=== PATIENT | male | born 1940 | race Caucasian/White ===

== ENCOUNTER 2022-06-15 18:04 | Inpatient (IN) | payer MEDICARE, SELFPAY ==
[2022-06-15] VITALS (13 sets, daily range): BP systolic 147–188; BP diastolic 70–88; PULSE 73–103; RESP 18–43; TEMP 36.9; O2SAT 90–98; BMI 36.6
--- NOTE | 2022-06-15 18:51 | DI.RAD.S_ITS ---
PROCEDURE: XR CHEST 2V INDICATIONS: suspected sepsis TECHNIQUE: 2 views of the chest were acquired. COMPARISON: None. FINDINGS: Surgical changes and devices: None. Lungs and pleura: Low lung volumes. Lungs are clear. No pleural effusions or pneumothorax. Mediastinum: Mediastinal contours are normal. Heart size is normal. Bones and chest wall: No suspicious bony abnormalities. Soft tissues appear unremarkable. IMPRESSION: No acute finding. Dictated by: Quinten Amaya M.D. on 06/15/2022 at 19:12 Approved by: Quinten Amaya M.D. on 06/15/2022 at 19:14
[2022-06-15 19:36] LABS: Add Manual Diff / Slide Review NO; Basophils Absolute Auto 0 /uL (0-100); Basophils Percent Auto 0.7 % (0-2); Eosinophils Absolute Auto 0 /uL (0-450); Eosinophils Percent Auto 0.6 % (2-4); Hematocrit 38.1 % (41-53); Hemoglobin 12.7 g/dL (13.5-17.5); Lymphocytes Absolute Auto 1100 /uL (1100-4500); Lymphocytes Percent Auto 17.2 % (25-40); Mean Corpuscular HGB Conc 33.3 % (30-36); Mean Corpuscular Hemoglobin 29.8 PG (26-34); Mean Corpuscular Volume 89.4 fL (80-100); Monocytes Absolute Auto 500 /uL (0-900); Neutrophils Absolute Auto 4900 /uL (1500-7000); Neutrophils Percent Auto 73.5 % (50-75); Platelet Count 329 X10^3/uL (150-400); Red Blood Cell Count 4.27 X10^6/uL (4.5-5.9); Red Cell Distribution Width 14.3 % (11.6-14.8); White Blood Cell Count 6.6 X10^3/uL (4.5-11.0)
[2022-06-15 19:42] LABS: INR 1.9 (0.9-1.3); Prothrombin Time 21.7 SECONDS (10.1-12.7)
[2022-06-15 19:45] LABS: PTT Partial Thromboplastin Tim 37 SECONDS (26-36)
[2022-06-15] MEDS: SODIUM CHLORIDE 0.9% 1,000 ML 1000 ML IV (19:45)
[2022-06-15 19:47] LABS: Alanine Aminotransferase 23 IU/L (<50); Alkaline Phosphatase 110 U/L (38-126); Aspartate Aminotransferase 32 IU/L (17-59); BUN Creatinine Ratio 14.1 (6-22); Bilirubin Total 0.9 mg/dL (0.2-1.3); Blood Urea Nitrogen 12 mg/dL (9-20); Calcium 9.7 mg/dL (8.4-10.2); Carbon Dioxide 26 mmol/L (22-32); Chloride 100 mmol/L (98-107); Estimated Glomerular Filt Rate > 60 mL/min (>60); Globulin 3.9 g/dL (1.7-4.1); Glucose 101 mg/dL (80-110); HEMOLYSIS < 15 (0-50); Lipase 86 U/L (23-300); Potassium 3.6 mmol/L (3.4-5.1); Sodium 137 mmol/L (137-145); Total Protein 7.9 g/dL (6.3-8.2)
[2022-06-15 19:48] LABS: Lactate (Lactic Acid) 2.1 mmol/L (0.7-2.1)
[2022-06-15 20:03] LABS: Procalcitonin 0.12 ng/mL (<0.5)
[2022-06-15 20:26] LABS: Influenza A - CEPHEID Flu A NEGATIVE (NEGATIVE); Influenza B - CEPHEID Flu B NEGATIVE (NEGATIVE); Respiratory Syncytial Virus Negative (Negative)
[2022-06-15 20:29] LABS: COVID-19 CEPHEID 4-PLEX PCR Negative (Negative)
[2022-06-15 21:32] LABS: Reflexed Lactate in 2 Hours Y
[2022-06-15 22:01] LABS: Lactate 2HR (Lactic Acid Rflx) 1.2 mmol/L (0.7-2.1)
--- NOTE | 2022-06-15 22:10 | ED.WOUNDLAC ---
HPI - Wound/Laceration General Chief Complaint: Wound/Laceration Stated Complaint: Poss sepsis Time Seen by Provider: 06/15/22 19:19 Source: patient Mode of arrival: Ambulatory History of Present Illness HPI narrative: 82-year-old gentleman with a history of prostate cancer, congestive heart failure, chronic atrial fibrillation anticoagulated on apixaban, hypertension who presents with left lower extremity swelling. Approximately 3 weeks ago he describes of puncture wound to the left anterior knight with a stick of some sort. Did not think much of it however it did become increasingly red tender painful and he was seen by his primary care provider on 06/09 given an IM dose of ceftriaxone and has completed a 7 day course of Keflex. The leg is still has erythema warmth edema and increasing pain after completion of the Keflex. His primary care doctor recommended that he come to the emergency department for further evaluation. States that he has been having occasional fevers and chills, no cough, palpitations, chest pain or dyspnea. Related Data Home Medications Medication Instructions Recorded Confirmed abiraterone 250 mg tablet 250 mg PO DAILY 06/15/22 06/15/22 amlodipine 5 mg tablet 5 mg PO DAILY 06/15/22 06/15/22 apixaban 5 mg tablet (Eliquis) 5 mg PO BID 06/15/22 06/15/22 cholecalciferol (vitamin D3) 1,000 mg PO DAILY 06/15/22 06/15/22 lisinopril 20 mg tablet 20 mg PO Q12H 06/15/22 06/15/22 metoprolol succinate 25 mg 25 mg PO DAILY 06/15/22 06/15/22 tablet,extended release 24 hr omeprazole 20 mg capsule,delayed 20 mg PO DAILY 06/15/22 06/15/22 release prednisone 5 mg tablet 5 mg PO DAILY 06/15/22 06/15/22 torsemide 10 mg tablet 10 mg PO DAILY 06/15/22 06/15/22 Allergies Allergy/AdvReac Type Severity Reaction Status Date / Time No Known Drug Allergies Allergy Verified 06/15/22 18:22 Review of Systems Review of Systems Narrative: Remainder of complete review of systems is otherwise unremarkable except for that included in the HPI. Patient History Medical History Chronic atrial fibrillation Congestive heart failure Hypertension Prostate cancer Exam Initial Vital Signs Initial Vital Signs: Vital Signs Temperature 98.5 F 06/15/22 18:23 Pulse Rate 80 06/15/22 18:23 Respiratory Rate 18 06/15/22 18:23 Blood Pressure 162/70 H 06/15/22 18:23 Pulse Oximetry 96 06/15/22 18:23 Oxygen Delivery Method 06/15/22 18:23 General: Chronically ill-appearing but in no acute distress. Able to give a complete and coherent history. Well-nourished well-developed HEENT: Moist mucous membranes, normal sclera with reactive pupils, Neck: No JVD, supple Respiratory: Lungs are clear to auscultation, no wheezing no rales no rhonchi. Full and symmetrical air movement Cardiac: Irregular with mild tachycardia but no murmurs no bruits Abdomen: Obese, Soft, nontender, good bowel tones, no flank pain Skin: Warm and dry, no rashes Neurologic: Grossly neurologically intact with no obvious asymmetries or abnormalities Extremities: Right lower extremity with chronic venous stasis changes and mild edema. Left lower extremity with healed/healing puncture wound lower anterior knight, 3+ edema and erythema extending toward the knee with warmth. No obvious fluctuance for I and D Psych: Cooperative, appropriate insight and affect Course Orders Ordered: ED Orders 06/15/22 18:51 XR chest 2V Stat COVID19 -Nasal RAPID/Pre-Proc Stat EKG-12 Lead Stat RT Consult Eval and Treat NOW 06/15/22 19:19 Complete Blood Count AUTO DIFF Stat Comprehensive Metabolic Panel Stat Lactate (Lactic Acid) Stat Lipase Stat Partial Thromboplastin Time Stat Procalcitonin Stat Prothrombin Time INR Stat 06/15/22 19:20 Covid-19 + FLU A/B + RSV - PCR Stat 06/15/22 19:41 Blood Culture Stat 06/15/22 22:29 CT LE LT w con Stat Acetaminophen (Acetaminophen 325 Mg Tablet) 650 mg PO Q6H PRN PRN Reason: Fever/Mild Pain (1-3) Al Hydrox/Mg Hydrox/Simethicone (Mag Hydrox/Alum/Simeth 30 Ml Udc) 30 ml PO Q6HR PRN PRN Reason: Dyspepsia Amlodipine Besylate (Amlodipine 5 Mg Tablet) 5 mg PO DAILY KOTA Apixaban (Apixaban 5 Mg Tablet) 5 mg PO BID KOTA Furosemide (Furosemide 40 Mg/4 Ml Vial) 40 mg IV Q12HR [facility] Hydromorphone HCl (Hydromorphone 1 Mg Inj) 1 mg IV Q4H PRN PRN Reason: Pain, Severe (7-10) Vancomycin HCl (Vancomycin) 1,000 mg in 200 mls @ 200 mls/hr IV NOW ONE Stop: 06/16/22 04:29 Last Admin: 06/16/22 03:33 Dose: 200 mls/hr Documented By: ANDREA Vancomycin HCl/Dextrose (Vancomycin) 2,000 mg in 400 mls @ 200 mls/hr IV Q12H [facility] Piperacillin Sod/Tazobactam (Sod 3.375 gm/ Sodium Chloride) 100 mls @ 25 mls/hr IV Q8H [facility] Metoprolol Succinate (Metoprolol Er 25 Mg Tablet) 25 mg PO DAILY [facility] Naloxone HCl (Naloxone 0.4 Mg/Ml Vial) 0.2 mg IV Q2MIN PRN PRN Reason: Opiate Reversal Ondansetron HCl (Ondansetron 4 Mg/2 Ml Inj) 4 mg IV NOW PRN PRN Reason: Nausea And Vomiting Ondansetron HCl (Ondansetron 4 Mg Odt) 4 mg SL NOW PRN PRN Reason: Nausea And Vomiting Ondansetron HCl (Ondansetron 4 Mg/2 Ml Inj) 4 mg IV Q8HR PRN PRN Reason: Nausea And Vomiting Oxycodone HCl (Oxycodone Ir 5 Mg Tablet) 5 mg PO Q3H PRN PRN Reason: Pain, Moderate (4-6) Pantoprazole Sodium (Pantoprazole Dr 20 Mg Tablet) 20 mg PO QACBREAK [facility] Prednisone (Prednisone 5 Mg Tablet) 5 mg PO DAILY [facility] Vancomycin HCl (Vancomycin Per Pharmacy) [facility] NOW ONE Stop: 06/16/22 01:51 Discontinued Medications Sodium Chloride (Normal Saline 0.9%) 1,000 mls @ 1,000 mls/hr IV BOLUS ONE Stop: 06/15/22 19:50 Last Infusion: 06/15/22 20:28 Dose: 0 mls/hr Documented By: Admin: 06/15/22 19:45 Dose: 1,000 mls/hr Documented By: ANDREA Piperacillin Sod/Tazobactam (Sod 4.5 gm/ Sodium Chloride) 100 mls @ 200 mls/hr IV NOW ONE Stop: 06/15/22 22:32 Last Infusion: 06/15/22 23:22 Dose: 0 mls/hr Documented By: Admin: 06/15/22 22:43 Dose: 200 mls/hr Documented By: ANDREA Furosemide 60 mg/ Sodium (Chloride) 56 mls @ 112 mls/hr IV NOW ONE Stop: 06/15/22 23:04 Last Infusion: 06/16/22 00:15 Dose: 0 mls/hr Documented By: Admin: 06/15/22 23:21 Dose: 112 mls/hr Documented By: ANDREA Vancomycin HCl/Dextrose (Vancomycin) 1,500 mg in 300 mls @ 200 mls/hr IV NOW ONE Stop: 06/16/22 03:14 Last Admin: 06/16/22 02:04 Dose: 200 mls/hr Documented By: ANDREA Vancomycin HCl (Vancomycin Per Pharmacy) 1 request MISC NOW ONE Stop: 06/16/22 01:32 Last Admin: 06/16/22 02:33 Dose: Not Given Documented By: ANDREA Vital Signs Vital signs: Vital Signs - 8 hr 06/15/22 20:00 06/15/22 20:00 06/15/22 20:30 Pulse Rate 79 Respiratory Rate 23 Blood Pressure 150/71 H 147/70 H Pulse Oximetry 96 06/15/22 20:30 06/15/22 21:00 06/15/22 21:00 Pulse Rate 73 79 Respiratory Rate 22 24 Blood Pressure 152/74 H Pulse Oximetry 93 97 06/15/22 21:30 06/15/22 21:30 06/15/22 22:00 Pulse Rate 82 Respiratory Rate Blood Pressure 161/83 H 163/81 H Pulse Oximetry 95 06/15/22 22:00 06/15/22 22:30 06/15/22 22:30 Pulse Rate 82 95 H Respiratory Rate Blood Pressure 188/88 H Pulse Oximetry 95 06/15/22 23:28 06/15/22 23:29 06/15/22 23:29 Pulse Rate 90 90 Respiratory Rate 43 H Blood Pressure 174/77 H Pulse Oximetry 96 95 06/15/22 23:30 06/15/22 23:30 06/16/22 00:00 Pulse Rate 91 H Respiratory Rate 27 H Blood Pressure 161/77 H 149/70 H Pulse Oximetry 95 06/16/22 00:00 06/16/22 00:30 06/16/22 00:30 Pulse Rate 80 82 Respiratory Rate 21 Blood Pressure 156/72 H Pulse Oximetry 95 06/16/22 01:00 06/16/22 01:00 06/16/22 01:30 Pulse Rate 80 Respiratory Rate Blood Pressure 158/73 H 161/81 H Pulse Oximetry 96 06/16/22 01:30 Pulse Rate 87 Respiratory Rate 25 H Blood Pressure Pulse Oximetry 97 MDM - Wound/Laceration Lab Data Result diagrams: 06/15/22 19:19 06/15/22 19:19 Labs: Lab Results 06/15/22 06/15/22 06/15/22 Range/Units 19:19 19:19 19:19 WBC 6.6 (4.5-11.0) X10^3/uL RBC 4.27 L (4.5-5.9) X10^6/uL Hgb 12.7 L (13.5-17.5) g/dL Hct 38.1 L (41-53) % MCV 89.4 (80-100) fL MCH 29.8 (26-34) PG MCHC 33.3 (30-36) % RDW 14.3 (11.6-14.8) % Plt Count 329 (150-400) X10^3/uL Neut % (Auto) 73.5 (50-75) % Lymph % (Auto) 17.2 L (25-40) % [place] % (Auto) 8.0 (3-14) % Eos % (Auto) 0.6 L (2-4) % Baso % (Auto) 0.7 (0-2) % Neut # (Auto) 4900 (2952-0719) /uL Lymph # (Auto) 1100 (3531-2714) /uL [place] # (Auto) 500 (0-900) /uL Eos # (Auto) 0 (0-450) /uL Baso # (Auto) 0 (0-100) /uL PT 21.7 H (10.1-12.7) SECONDS INR 1.9 H (0.9-1.3) APTT 37 H (26-36) SECONDS Sodium 137 (137-145) mmol/L Potassium 3.6 (3.4-5.1) mmol/L Chloride 100 (98-107) mmol/L Carbon Dioxide 26 (22-32) mmol/L BUN 12 (9-20) mg/dL Creatinine 0.85 (0.66-1.25) mg/dL Estimated GFR > 60 (>60) mL/min BUN/Creatinine Ratio 14.1 (6-22) Glucose 101 (80-110) mg/dL Lactate (0.7-2.1) mmol/L Calcium 9.7 (8.4-10.2) mg/dL Total Bilirubin 0.9 (0.2-1.3) mg/dL AST 32 (17-59) IU/L ALT 23 (<50) IU/L Alkaline Phosphatase 110 (38-126) U/L Total Protein 7.9 (6.3-8.2) g/dL Albumin 4.0 (3.5-5.0) g/dL Globulin 3.9 (1.7-4.1) g/dL Albumin/Globulin Ratio 1.0 (1.0-2.8) Lipase 86 (23-300) U/L Procalcitonin 0.12 (<0.5) ng/mL SARS-CoV-2 (PCR) (Negative) Influenza A (RT-PCR) (NEGATIVE) Influenza B (RT-PCR) (NEGATIVE) RSV (PCR) (Negative) 06/15/22 06/15/22 06/15/22 Range/Units 19:19 19:20 21:42 WBC (4.5-11.0) X10^3/uL RBC (4.5-5.9) X10^6/uL Hgb (13.5-17.5) g/dL Hct (41-53) % MCV (80-100) fL MCH (26-34) PG MCHC (30-36) % RDW (11.6-14.8) % Plt Count (150-400) X10^3/uL Neut % (Auto) (50-75) % Lymph % (Auto) (25-40) % [place] % (Auto) (3-14) % Eos % (Auto) (2-4) % Baso % (Auto) (0-2) % Neut # (Auto) (1041-8645) /uL Lymph # (Auto) (5947-6797) /uL [place] # (Auto) (0-900) /uL Eos # (Auto) (0-450) /uL Baso # (Auto) (0-100) /uL PT (10.1-12.7) SECONDS INR (0.9-1.3) APTT (26-36) SECONDS Sodium (137-145) mmol/L Potassium (3.4-5.1) mmol/L Chloride (98-107) mmol/L Carbon Dioxide (22-32) mmol/L BUN (9-20) mg/dL Creatinine (0.66-1.25) mg/dL Estimated GFR (>60) mL/min BUN/Creatinine Ratio (6-22) Glucose (80-110) mg/dL Lactate 2.1 1.2 (0.7-2.1) mmol/L Calcium (8.4-10.2) mg/dL Total Bilirubin (0.2-1.3) mg/dL AST (17-59) IU/L ALT (<50) IU/L Alkaline Phosphatase (38-126) U/L Total Protein (6.3-8.2) g/dL Albumin (3.5-5.0) g/dL Globulin (1.7-4.1) g/dL Albumin/Globulin Ratio (1.0-2.8) Lipase (23-300) U/L Procalcitonin (<0.5) ng/mL SARS-CoV-2 (PCR) Negative (Negative) Influenza A (RT-PCR) Flu a negative (NEGATIVE) Influenza B (RT-PCR) Flu b negative (NEGATIVE) RSV (PCR) Negative (Negative) Imaging Data Lower extremity CT: Radiologist's Impression: FINDINGS:? Image quality:? Excellent.? ? Bones:? No fracture or dislocation.? No discrete bony erosions or periosteal reaction. ? Soft tissues:? There is concentric skin thickening and subcutaneous edema within the left lower extremity most prominent distally in the lower leg.? No radiopaque foreign body identified no discrete loculated peripherally enhancing fluid collection to suggest an abscess.? There is fatty atrophy of the medial head of the gastrocnemius and hamstring musculature.? No knee joint effusion. ? IMPRESSION:? ? 1. No CT evidence of osteomyelitis. ? 2. No radiopaque foreign body or discrete abscess identified.? ? ? Dictated by: Ranjan Ledezma M.D. on 06/16/2022 at 0:18 ? ? MDM Narrative Medical decision making narrative: 82-year-old gentleman immunocompromised on chronic prednisone secondary to treatment for his prostate cancer with chronic lower extremity edema and puncture wound to the left anterior thigh. He is had an initial dose of ceftriaxone 7 days of Keflex and symptoms have slightly progressed. There is no evidence of sepsis or abscess or osteomyelitis however I believe that the infection is still indolent and has been suppressed by antibiotics recently but has not been effectively treated. There is no drainage at this time to culture. I will recommend hospitalization to allow for elevation of the leg, IV diuretics and have added Zosyn to more effectively treat the infection. CT scan of lower extremity does not show obvious abscess, osteomyelitis or any radiopaque foreign body. Findings reviewed with patient and he will be admitted to the hospitalist service. Findings are reveiwed with patient, questions answered. Discussed with hospitalist and admission is accepted Discharge Plan Departure Patient Disposition: Admitted as Observation Clinical Impression: Cellulitis of left lower extremity Admit Date/Time: 06/16/22 01:36 Admit Provider: Sheree Levy
--- NOTE | 2022-06-15 22:29 | DI.CT.S_ITS ---
PROCEDURE: CT LE LT W CON INDICATIONS: wound to ant knight, ? foreign body, abscess, osteo TECHNIQUE: After the administration of intravenous contrast, 3 mm axial sections acquired of the left lower extremity , with coronal and sagittal reformats. COMPARISON: None. FINDINGS: Image quality: Excellent. Bones: No fracture or dislocation. No discrete bony erosions or periosteal reaction. Soft tissues: There is concentric skin thickening and subcutaneous edema within the left lower extremity most prominent distally in the lower leg. No radiopaque foreign body identified no discrete loculated peripherally enhancing fluid collection to suggest an abscess. There is fatty atrophy of the medial head of the gastrocnemius and hamstring musculature. No knee joint effusion. IMPRESSION: 1. No CT evidence of osteomyelitis. 2. No radiopaque foreign body or discrete abscess identified. Dictated by: Ranjan Ledezma M.D. on 06/16/2022 at 0:18 Approved by: Ranjan Ledezma M.D. on 06/16/2022 at 0:22
[2022-06-15] MEDS: PIPERACILLIN/TAZO 4.5 GM in SODIUM CHLORIDE 0.9% 100 ML IV (22:43)
[2022-06-15] MEDS: FUROSEMIDE 60 MG in SODIUM CHLORIDE 0.9% 50 ML 112 MG IV (23:21)
[2022-06-16] VITALS (27 sets, daily range): BP systolic 115–168; BP diastolic 66–81; PULSE 73–137; RESP 17–43; TEMP 36.1–36.6; O2SAT 94–98; BMI 36.6
--- NOTE | 2022-06-16 02:02 | P.HP_ITS ---
History of Present Illness History of Present Illness Date Patient Seen: 06/16/22 Chief complaint: Poss sepsis Narrative: 82-year-old gentleman with a history of prostate cancer, congestive heart failure, chronic atrial fibrillation anticoagulated on apixaban, hypertension who presents with left lower extremity swelling.? Approximately 3 weeks ago he describes of puncture wound to the left anterior knight with a stick of some sort.? Did not think much of it however it did become increasingly red tender painful and he was seen by his primary care provider on 06/09 given an IM dose of ceftriaxone and has completed a 7 day course of Keflex.? The leg is still has erythema warmth edema and increasing pain after completion of the Keflex.? His primary care doctor recommended that he come to the emergency department for further evaluation.? States that he has been having occasional fevers and chills, no cough, palpitations, chest pain or dyspnea. Patient does have urinary incontinence episodes and symptoms related to urgency but denies any dysuria. Says his urinary symptoms are relatively chronic. Patient getting admitted for failed outpatient antibiotic therapy and worsening of his cellulitis and left lower extremity wound. Patient lives with his and farzad, they left hospital before I saw, he requested not to call them at 2:00 a.m. in the morning, or team members will call them to give an update. Patient History Medical History Chronic atrial fibrillation Congestive heart failure Hypertension Prostate cancer Family & Social History Safety & Behavioral: Feels Safe in Current Yes Environment Been Physically Hurt or No Threatened By a Person Tobacco & Substance use: No history of smoking, occasional alcohol no drug abuse. He worked as a executive assistant to president, and lived in in several [facility] including [facility]. Meds Home Medications and Allergies Home Medications Medication Instructions Recorded Confirmed Type abiraterone 250 mg tablet 250 mg PO DAILY 06/15/22 06/15/22 History amlodipine 5 mg tablet 5 mg PO DAILY 06/15/22 06/15/22 History apixaban 5 mg tablet (Eliquis) 5 mg PO BID 06/15/22 06/15/22 History cholecalciferol (vitamin D3) 1,000 mg PO DAILY 06/15/22 06/15/22 History lisinopril 20 mg tablet 20 mg PO Q12H 06/15/22 06/15/22 History metoprolol succinate 25 mg 25 mg PO DAILY 06/15/22 06/15/22 History tablet,extended release 24 hr omeprazole 20 mg capsule,delayed 20 mg PO DAILY 06/15/22 06/15/22 History release prednisone 5 mg tablet 5 mg PO DAILY 06/15/22 06/15/22 History torsemide 10 mg tablet 10 mg PO DAILY 06/15/22 06/15/22 History Allergies Allergy/AdvReac Type Severity Reaction Status Date / Time No Known Drug Allergies Allergy Verified 06/15/22 18:22 Review of Systems Review of Systems Narrative: All other systems reviewed, negative other than as mentioned above in HPI. Exam Vital Signs (past 8 hours): - 06/15/22 18:23 06/15/22 19:09 06/15/22 19:11 Temperature 98.5 F Pulse Rate 80 103 H Respiratory Rate 18 Blood Pressure 162/70 H 162/83 H Pulse Oximetry 96 90 L Oxygen Delivery Method Room Air 06/15/22 19:11 06/15/22 19:30 06/15/22 19:30 Temperature Pulse Rate 96 H 81 Respiratory Rate 27 H 22 Blood Pressure 150/81 H Pulse Oximetry 98 97 Oxygen Delivery Method 06/15/22 20:00 06/15/22 20:00 06/15/22 20:30 Temperature Pulse Rate 79 Respiratory Rate 23 Blood Pressure 150/71 H 147/70 H Pulse Oximetry 96 Oxygen Delivery Method 06/15/22 20:30 06/15/22 21:00 06/15/22 21:00 Temperature Pulse Rate 73 79 Respiratory Rate 22 24 Blood Pressure 152/74 H Pulse Oximetry 93 97 Oxygen Delivery Method 06/15/22 21:30 06/15/22 21:30 06/15/22 22:00 Temperature Pulse Rate 82 Respiratory Rate Blood Pressure 161/83 H 163/81 H Pulse Oximetry 95 Oxygen Delivery Method 06/15/22 22:00 06/15/22 22:30 06/15/22 22:30 Temperature Pulse Rate 82 95 H Respiratory Rate Blood Pressure 188/88 H Pulse Oximetry 95 Oxygen Delivery Method 06/15/22 23:28 06/15/22 23:29 06/15/22 23:29 Temperature Pulse Rate 90 90 Respiratory Rate 43 H Blood Pressure 174/77 H Pulse Oximetry 96 95 Oxygen Delivery Method 06/15/22 23:30 06/15/22 23:30 06/16/22 00:00 Temperature Pulse Rate 91 H Respiratory Rate 27 H Blood Pressure 161/77 H 149/70 H Pulse Oximetry 95 Oxygen Delivery Method 06/16/22 00:00 06/16/22 00:30 06/16/22 00:30 Temperature Pulse Rate 80 82 Respiratory Rate 21 Blood Pressure 156/72 H Pulse Oximetry 95 Oxygen Delivery Method 06/16/22 01:00 06/16/22 01:00 Temperature Pulse Rate 80 Respiratory Rate Blood Pressure 158/73 H Pulse Oximetry 96 Oxygen Delivery Method Oxygen Delivery Method Room Air Narrative Exam Narrative: Elderly gentleman seems to be in mild distress because of discomfort related to left leg pain, lying in the bed, able to make a reasonable conversation, follows commands. Left lower extremity has a significant swelling and redness with a wound in the anterior aspect of the knight with some purulent discharge. Significant cellulitis changes noted. Significant pedal edema 3+ noted. Right lower extremity also has pitting pedal edema but no obvious signs of cellulitis at this time. Heart rate irregular, systolic murmur noted. Constitutional, HEENT, eyes, neck, chest, respiratory, cardiovascular, GI, , skin, neuro, psych, examination done within normal limits except as mentioned above. Objective Labs Result Diagrams: 06/15/22 19:19 06/15/22 19:19 Labs: Laboratory Results - last 24 hr 06/15/22 06/15/22 06/15/22 19:19 19:19 19:19 WBC 6.6 RBC 4.27 L Hgb 12.7 L Hct 38.1 L MCV 89.4 MCH 29.8 MCHC 33.3 RDW 14.3 Plt Count 329 Neut % (Auto) 73.5 Lymph % (Auto) 17.2 L [place] % (Auto) 8.0 Eos % (Auto) 0.6 L Baso % (Auto) 0.7 Neut # (Auto) 4900 Lymph # (Auto) 1100 [place] # (Auto) 500 Eos # (Auto) 0 Baso # (Auto) 0 PT 21.7 H INR 1.9 H APTT 37 H Sodium 137 Potassium 3.6 Chloride 100 Carbon Dioxide 26 BUN 12 Creatinine 0.85 Estimated GFR > 60 BUN/Creatinine Ratio 14.1 Glucose 101 Lactate Calcium 9.7 Total Bilirubin 0.9 AST 32 ALT 23 Alkaline Phosphatase 110 Total Protein 7.9 Albumin 4.0 Globulin 3.9 Albumin/Globulin Ratio 1.0 Lipase 86 Procalcitonin 0.12 SARS-CoV-2 (PCR) Influenza A (RT-PCR) Influenza B (RT-PCR) RSV (PCR) 06/15/22 06/15/22 06/15/22 19:19 19:20 21:42 WBC RBC Hgb Hct MCV MCH MCHC RDW Plt Count Neut % (Auto) Lymph % (Auto) [place] % (Auto) Eos % (Auto) Baso % (Auto) Neut # (Auto) Lymph # (Auto) [place] # (Auto) Eos # (Auto) Baso # (Auto) PT INR APTT Sodium Potassium Chloride Carbon Dioxide BUN Creatinine Estimated GFR BUN/Creatinine Ratio Glucose Lactate 2.1 1.2 Calcium Total Bilirubin AST ALT Alkaline Phosphatase Total Protein Albumin Globulin Albumin/Globulin Ratio Lipase Procalcitonin SARS-CoV-2 (PCR) Negative Influenza A (RT-PCR) Flu a negative Influenza B (RT-PCR) Flu b negative RSV (PCR) Negative Assessment & Plan Assessment and plan (1) Cellulitis of left lower extremity: Status: Acute Assessment & Plan narrative: Severe left lower extremity cellulitis and nonhealing wound and failed outpatient antibiotics therapy -admitted for IV antibiotics -IV vancomycin and Zosyn given in the ER, continue same medication, caution with nephrotoxicity, pharmacy to help with the vancomycin dosing. Close monitoring of the kidney functions. Given significant pedal edema, worsening we will continue IV Lasix. Hold off on lisinopril. Wound care consultation. Consider surgery evaluation if patient not showing improvement in next 24 hours with IV antibiotics. Patient immunocompromised status because of the chronic steroid use and also ongoing treatment for cancer Atrial fibrillation, rate controlled and on anticoagulation -continue beta- miranda, apixaban Benign essential hypertension continue to monitor Prostate cancer with ongoing therapy continue medications, steroid therapy given the chronic use. DVT and GI prophylaxis reviewed. Patient is full code. Care plan extensively discussed with the patient, offered to talk to family members, our team will call patient family in the morning. Patient expected length of stay definitely greater than 2 midnights given failed outpatient therapy and require close monitoring. Inpatient status. Time Spent With Patient Critical Care time: I spent a total of [] minutes of critical care time on this patient's care today; this time is exclusive of procedural time.
[2022-06-16] MEDS: VANCOMYCIN 1,500 MG/300 ML PIGGYBACK 200 MG IV ×2 (02:04→16:27)
[2022-06-16] MEDS: VANCOMYCIN 1,000 MG/200 ML PIGGYBACK 200 MG IV (03:33)
[2022-06-16] MEDS: PIPERACILLIN/TAZO 3.375 GM in SODIUM CHLORIDE 0.9% 100 ML IV ×3 (04:45→19:53)
[2022-06-16 06:52] LABS: Add Manual Diff / Slide Review NO; Basophils Absolute Auto 100 /uL (0-100); Eosinophils Absolute Auto 100 /uL (0-450); Eosinophils Percent Auto 2.4 % (2-4); Hematocrit 36.8 % (41-53); Hemoglobin 12.2 g/dL (13.5-17.5); Lymphocytes Absolute Auto 1000 /uL (1100-4500); Lymphocytes Percent Auto 20.4 % (25-40); Mean Corpuscular HGB Conc 33.2 % (30-36); Mean Corpuscular Hemoglobin 29.3 PG (26-34); Mean Corpuscular Volume 88.2 fL (80-100); Monocytes Absolute Auto 600 /uL (0-900); Monocytes Percent Auto 11.6 % (3-14); Neutrophils Absolute Auto 3300 /uL (1500-7000); Neutrophils Percent Auto 64.6 % (50-75); Platelet Count 295 X10^3/uL (150-400); Red Blood Cell Count 4.17 X10^6/uL (4.5-5.9); Red Cell Distribution Width 14.5 % (11.6-14.8); White Blood Cell Count 5.1 X10^3/uL (4.5-11.0)
[2022-06-16 07:03] LABS: BUN Creatinine Ratio 11.7 (6-22); Blood Urea Nitrogen 11 mg/dL (9-20); Calcium 9.2 mg/dL (8.4-10.2); Carbon Dioxide 30 mmol/L (22-32); Chloride 102 mmol/L (98-107); Estimated Glomerular Filt Rate > 60 mL/min (>60); Glucose 94 mg/dL (80-110); HEMOLYSIS < 15 (0-50); Potassium 3.3 mmol/L (3.4-5.1); Sodium 141 mmol/L (137-145)
[2022-06-16] MEDS: FUROSEMIDE 40 MG/4 ML VIAL IV ×2 (07:28→13:05)
[2022-06-16] MEDS: PANTOPRAZOLE DR 20 MG TABLET PO (07:28)
--- NOTE | 2022-06-16 08:19 | PC.NURSE ---
ABIRATERONE 250MG ORDERED BY HOSPITALIST, PT TOOK HIS HOME DOSE. EXPLAINED TO PATIENT THAT WE WILL BE GIVING THE REST OF HIS MEDICATIONS SO I AM ABLE TO SCAN THEM INTO OUR COMPUTER AND KEEP TRACK OF THE MEDICATIONS HE IS TAKING AND AT WHAT TIME. PT VERBALIZED UNDERSTANDING.
--- NOTE | 2022-06-16 08:53 | PC.NURSE ---
Patient only wanted fruit cup from his meal tray. Refused everything else.
--- NOTE | 2022-06-16 10:25 | OT.IPNOTE ---
Spoke to hospitalist regarding OT eval orders for pt and states okay to discharge as not needed for the pt at this time.
[2022-06-16] MEDS: AMLODIPINE 5 MG TABLET PO (10:38)
[2022-06-16] MEDS: predniSONE 5 MG TABLET PO (10:38)
[2022-06-16] MEDS: METOPROLOL ER 25 MG TABLET PO (10:38)
[2022-06-16] MEDS: APIXABAN 5 MG TABLET PO ×2 (10:38→21:50)
[2022-06-16] MEDS: POTASSIUM CHLORIDE 20 MEQ TAB 40 MEQ PO ×2 (11:15→16:27)
--- NOTE | 2022-06-16 11:38 | PC.NURSE ---
Talked with pt about reasons for taking potassium this morning due to increased diuretics. Pt using call light appropriately for needs.
--- NOTE | 2022-06-16 12:28 | PT-IP ANOTE ---
Per hospitalist during rounds, d/c PT eval at this time.
[2022-06-16 16:04] LABS: RBC Urine 10-30/HPF (0-5/HPF)
[2022-06-16 16:05] LABS: Amorphous Sediment Urine 1+; Bacteria Urine None Seen; Culture Indicated Urine Cult Not Indicated; Squamous Epithelial Cell Urine 0-1 /HPF (0-5/HPF); WBC Urine 0-1/HPF (0-5/HPF)
--- NOTE | 2022-06-16 16:55 | PC.NURSE ---
Pt arrived in wheelchair from ED at 1430, able to ambulate SBA to the bed. A&Ox4, no c/o pain, just slight tenderness to LLE. Lungs cta, +cms, HR irregular. Zosyn infusing to IV in R forearm. color television console monitor applied: atrial fibrillation. Pt assisted to change into gown, oriented to room and call light.
[2022-06-17] VITALS (8 sets, daily range): BP systolic 108–128; BP diastolic 68–76; PULSE 57–74; RESP 16–19; TEMP 36.2–36.4; O2SAT 96–100
[2022-06-17] MEDS: FUROSEMIDE 40 MG/4 ML VIAL IV ×2 (00:01→12:05)
[2022-06-17] MEDS: VANCOMYCIN 1,500 MG/300 ML PIGGYBACK 200 MG IV (02:36)
[2022-06-17] MEDS: SODIUM CHLORIDE 0.9% FLUSH 10 ML IV ×3 (02:36→20:09)
[2022-06-17] MEDS: PIPERACILLIN/TAZO 3.375 GM in SODIUM CHLORIDE 0.9% 100 ML IV ×3 (04:32→20:12)
[2022-06-17] MEDS: PANTOPRAZOLE DR 20 MG TABLET PO (07:47)
[2022-06-17] MEDS: ABIRATERONE 250 MG 1000 EACH PO (07:50)
[2022-06-17 07:56] LABS: Add Manual Diff / Slide Review NO; Basophils Absolute Auto 100 /uL (0-100); Eosinophils Absolute Auto 200 /uL (0-450); Hematocrit 36.6 % (41-53); Hemoglobin 11.9 g/dL (13.5-17.5); Lymphocytes Absolute Auto 1100 /uL (1100-4500); Lymphocytes Percent Auto 19.9 % (25-40); Mean Corpuscular HGB Conc 32.6 % (30-36); Mean Corpuscular Hemoglobin 29.2 PG (26-34); Mean Corpuscular Volume 89.5 fL (80-100); Monocytes Absolute Auto 600 /uL (0-900); Monocytes Percent Auto 10.2 % (3-14); Neutrophils Absolute Auto 3700 /uL (1500-7000); Neutrophils Percent Auto 65.9 % (50-75); Platelet Count 313 X10^3/uL (150-400); Red Blood Cell Count 4.09 X10^6/uL (4.5-5.9); Red Cell Distribution Width 14.3 % (11.6-14.8); White Blood Cell Count 5.6 X10^3/uL (4.5-11.0)
[2022-06-17 08:11] LABS: BUN Creatinine Ratio 12.7 (6-22); Blood Urea Nitrogen 13 mg/dL (9-20); Calcium 9.1 mg/dL (8.4-10.2); Carbon Dioxide 29 mmol/L (22-32); Chloride 100 mmol/L (98-107); Estimated Glomerular Filt Rate > 60 mL/min (>60); Glucose 96 mg/dL (80-110); HEMOLYSIS < 15 (0-50); Potassium 3.3 mmol/L (3.4-5.1); Sodium 140 mmol/L (137-145)
[2022-06-17 08:17] LABS: NT-proBNP (BNP-Adult 18+) 695 pg/mL (<450)
[2022-06-17] MEDS: METOPROLOL ER 25 MG TABLET PO (08:52)
[2022-06-17] MEDS: predniSONE 5 MG TABLET PO (08:52)
[2022-06-17] MEDS: AMLODIPINE 5 MG TABLET PO (08:53)
[2022-06-17] MEDS: APIXABAN 5 MG TABLET PO ×2 (08:53→20:08)
--- NOTE | 2022-06-17 09:00 | DI.US.S_ITS ---
PROCEDURE: US PERIPH VENOUS LOW EXTREM LT INDICATIONS: EDEMA; CELLULITIS TECHNIQUE: Real-time imaging, as well as color and pulse Doppler interrogation, were performed of the lower extremity deep veins from the inguinal ligament to the popliteal fossa. COMPARISON: None. FINDINGS: The common femoral, femoral and popliteal veins are normally compressible, and free of intraluminal thrombus. Color and pulse Doppler demonstrate normal phasic intraluminal flow. There is normal augmentation response to distal compression maneuver. IMPRESSION: No deep venous thrombosis. Dictated by: Quinten Amaya M.D. on 06/19/2022 at 10:28 Approved by: Quinten Amaya M.D. on 06/19/2022 at 10:35
[2022-06-17] MEDS: POTASSIUM CHLORIDE 20 MEQ TAB 40 MEQ PO ×2 (10:57→16:30)
[2022-06-17] MEDS: HYDROMORPHONE 1 MG INJ IV (11:43)
--- NOTE | 2022-06-17 13:07 | PM.PN.1 ---
Subjective Subjective Date Patient Seen: 06/17/22 Interval history: 82 M admitted with cellulitis. Leg swelling is improved today along with erythema but he does have continued pain and swelling. otherwise feels well without fever, chest pain , shortness of breath. US of the leg pending final read to rule out DVT. Exam Vital Signs (past 8 hours): - 06/17/22 06:00 06/17/22 08:52 06/17/22 09:08 Temperature 97.2 F L Pulse Rate 74 74 68 Respiratory Rate 18 Blood Pressure 123/72 123/76 118/70 Pulse Oximetry 97 Oxygen Flow Rate 0 06/17/22 10:00 Temperature 97.2 F L Pulse Rate 57 L Respiratory Rate 16 Blood Pressure 128/75 Pulse Oximetry 100 Oxygen Flow Rate 0 Oxygen Delivery Method Room Air Oxygen Flow Rate 0 Narrative Exam Narrative: General:? Patient is well developed and well nourished, in no distress at this time. HEENT:? Normocephalic, atraumatic, extraocular muscles intact, oral pharynx is clear and mucous membranes are moist. Neck: supple and symmetric, trachea is midline, no cervical adenopathy. Negative for JVD Chest:? Normal AP diameter and contour without kyphoscoliosis, no tachypnea, equal chest rise bilaterally. Lungs:? CTA b/l no wheezing rhonchi or rales. Cardio:?RRR no m/r/g. Abdomen: S NT ND. No CVA tenderness. Musculoskeletal:? Muscle strength and tone are equal within normal limits, no deformity. Motion of his left ankle is improved. Extremities: b/l 2+ pitting edema from knee to forefoot, L > R, with L calf cirucmferential erythema, tenderness. Mild bullae formation medially. Warmth improved today. Bilateral chronic venous stasis changes. Skin:? Except as noted above. Pale,? Warm to touch,dry and intact without ulcerations or petechiae.? Neuro:? Alert and orientated x3,? sensation to touch intact in all extremities, no gross deficits noted of cranial nerves. Psych:? Patient has a well-kept appearance, appropriate affect, mental status attitude thought context and judgment are appropriate for age. Objective Labs Result Diagrams: 06/17/22 07:13 06/17/22 07:13 Labs: Laboratory Results - last 24 hr 12/09/0606/17/22 06/17/22 13:17 07:13 07:13 WBC 5.6 RBC 4.09 L Hgb 11.9 L Hct 36.6 L MCV 89.5 MCH 29.2 MCHC 32.6 RDW 14.3 Plt Count 313 Neut % (Auto) 65.9 Lymph % (Auto) 19.9 L [place] % (Auto) 10.2 Eos % (Auto) 3.0 Baso % (Auto) 1.0 Neut # (Auto) 3700 Lymph # (Auto) 1100 [place] # (Auto) 600 Eos # (Auto) 200 Baso # (Auto) 100 Sodium 140 Potassium 3.3 L Chloride 100 Carbon Dioxide 29 BUN 13 Creatinine 1.02 Estimated GFR > 60 BUN/Creatinine Ratio 12.7 Glucose 96 Calcium 9.1 NT-Pro-B Natriuret Pep 695 H Urine RBC 10-30/hpf H Urine WBC 0-1/hpf Ur Squamous Epith Cells 0-1 /hpf Amorphous Sediment 1+ Urine Bacteria None seen Ur Culture Indicated? Cult not indicated [facility] Medical History Chronic atrial fibrillation Congestive heart failure Hypertension Prostate cancer Social History Smoking Status: Never smoker alcohol intake: current Assessment & Plan Assessment and plan (1) Cellulitis of left lower extremity: Status: Acute Assessment & Plan narrative: Severe left lower extremity cellulitis, failed outpatient antibiotics therapy -admitted for IV antibiotics -IV vancomycin and Zosyn given in the ER, continue same medication, caution with nephrotoxicity, pharmacy to help with the vancomycin dosing. Creatinine rising slightly if continues to rise consider alteration of therapy. - Given significant pedal edema, we will continue IV Lasix. Hold off on lisinopril. - Patient immunocompromised status because of the chronic steroid use and also ongoing treatment for cancer Atrial fibrillation, rate controlled and on anticoagulation -continue beta-miranda, apixaban Benign essential hypertension continue to monitor Prostate cancer with ongoing therapy continue medications, steroid therapy given the chronic use. DVT and GI prophylaxis reviewed. Patient is full code. Inpatient status. Anticipate discharge home in the next few days with continued IV therapy. Time Spent With Patient Critical Care time: I spent a total of [] minutes of critical care time on this patient's care today; this time is exclusive of procedural time.
--- NOTE | 2022-06-17 14:26 | CM.DANOTE ---
Initial DCP Assessment Note Pt is an 82 yo male, resident of [place], arrives w/left lower extremity swelling and admitted for treatment of Cellulitis of left lower extremity and nonhealing wound; patient failed outpatient antibiotics therapy -admitted for IV antibiotics PCP: Beatriz Peterson Payer: [facility] Met w/patient to introduce self and role. Patient in good spirits, states he hopes to return home tomorrow. Patient states he is indp at baseline, lives w/spouse. Discussed HH services and patient is agreeable. No agency preference so faxed completed F2F, HH order and H+P to [facility] alerting them patient may DC [id number], requested *RN/PT/OT Patient requests information on in home services so provided Senior Resource Guide, highlighted number for [facility] Senior Resources Plan: Expect patient will discharge home when medically stable to the care of his , HH services and close outpatient f/u *Patient would likely benefit from HH RN for wound care upon discharge; did not discuss w/patient but will ask that oncoming PRODUCT P[employer]ER discuss w/patient and HH agency upon discharge YOANDY Mack Discharge Planning/Care Management CM Discharge Assessment Start: 06/17/22 14:17 Freq: Status: Active Protocol: Document 06/17/22 14:17 JADA (Rec: 06/17/22 14:25 JADA [id number]) Discharge Planning Assessment Assigned Contingents Supervisor YOANDY Del Rio DPOA/Assigned Designee Name Laith Brown, spouse Contact Information [phone] Advance Directives? Yes Advance Directives on File No History Provided By Patient,Medical Record Prior Living Arrangements House Household Members spouse Type of transporation used prior to Drives own vehicle admit Independent with ADL's Yes Is patient alert and oriented? Yes Patient/Family Preference Home with Home Health Barriers to Discharge No Comment Home w/spouse expected when medically stable Discharge Plan Home with Home Health Transportation Arrangement Spouse Referrals Initiated Home Health Additional Comment No agency preference. Referral sent to [facility] based on calendar rotation Medicare Choice List Provided Yes SNF/HH Preference No preference
[2022-06-17] MEDS: VANCOMYCIN TROUGH 1 REQUEST MISC (15:07)
[2022-06-17 15:35] LABS: Vancomycin Trough 20.6 ug/mL (10-20)
[2022-06-17] MEDS: VANCOMYCIN 1,000 MG/200 ML PIGGYBACK 200 MG IV (18:40)
[2022-06-18] MEDS: FUROSEMIDE 40 MG/4 ML VIAL IV ×3 (00:49→16:29)
[2022-06-18] MEDS: PIPERACILLIN/TAZO 3.375 GM in SODIUM CHLORIDE 0.9% 100 ML IV ×3 (04:00→20:29)
[2022-06-18] MEDS: VANCOMYCIN 1,000 MG/200 ML PIGGYBACK 200 MG IV ×2 (06:21→20:28)
[2022-06-18] MEDS: PANTOPRAZOLE DR 20 MG TABLET PO (06:21)
--- NOTE | 2022-06-18 09:34 | P.PN_ITS ---
Subjective Subjective Date Patient Seen: 06/18/22 Interval history: Still with redness and swelling of the LLE but improving slowly. Exam Vital Signs (past 8 hours): Oxygen Delivery Method Room Air Oxygen Flow Rate 0 Narrative Exam Narrative: General:? Patient is well developed and well nourished, in no distress at this time. HEENT:? Normocephalic, atraumatic, extraocular muscles intact, oral pharynx is clear and mucous membranes are moist. Neck: supple and symmetric, trachea is midline, no cervical adenopathy. Negative for JVD Chest:? Normal AP diameter and contour without kyphoscoliosis, no tachypnea, equal chest rise bilaterally. Lungs:? CTA b/l no wheezing rhonchi or rales. Cardio:?RRR no m/r/g. Abdomen: S NT ND. No CVA tenderness. Musculoskeletal:? Muscle strength and tone are equal within normal limits, no deformity. Motion of his left ankle is improved. Extremities: b/l 2+ pitting edema from knee to forefoot, L > R, with L calf circumferential erythema, tenderness. Mild bullae formation medially. Warmth improved today. Bilateral chronic venous stasis changes. Skin:? Except as noted above. Pale,? Warm to touch,dry and intact without ulcerations or petechiae. Neuro:? Alert and orientated x3,? sensation to touch intact in all extremities, no gross deficits noted of cranial nerves. Psych:? Patient has a well-kept appearance, appropriate affect, mental status attitude thought context and judgment are appropriate for age. Objective Labs Result Diagrams: 06/17/22 07:13 06/17/22 07:13 Labs: Laboratory Results - last 24 hr 06/17/22 14:40 Vancomycin Trough 20.6 H* [facility] Medical History Chronic atrial fibrillation Congestive heart failure Hypertension Prostate cancer Social History household members: spouse Smoking Status: Never smoker alcohol intake: current Assessment & Plan Assessment & Plan narrative: Severe left lower extremity cellulitis, failed outpatient antibiotics therapy -admitted for IV antibiotics -IV vancomycin and Zosyn given in the ER, continue same medication, caution with nephrotoxicity, pharmacy to help with the vancomycin dosing. Creatinine rising slightly if continues to rise consider alteration of therapy. -Given significant pedal edema, we will continue IV Lasix. Hold off on lisinopr il. -Patient immunocompromised status because of the chronic steroid use and also ongoing treatment for cancer -likely component of venous stasis given weeping drainage, recommended frequent leg elevation Atrial fibrillation, rate controlled and on anticoagulation -continue beta-miranda, apixaban Benign essential hypertension continue to monitor Prostate cancer with ongoing therapy continue medications, steroid therapy given the chronic use. DVT and GI prophylaxis reviewed. Patient is full code. Inpatient status. Anticipate discharge home in the next few days with continued IV therapy. Time Spent With Patient Critical Care time: I spent a total of [] minutes of critical care time on this patient's care tod ay; this time is exclusive of procedural time.
[2022-06-18 09:43] VITALS: BP 106/70; PULSE 88
[2022-06-18 09:47] VITALS: BP 106/70; PULSE 87; RESP 16; TEMP 36.1; O2SAT 99
[2022-06-18 09:49] VITALS: BP 106/70; PULSE 88
[2022-06-18] MEDS: AMLODIPINE 5 MG TABLET PO (09:49)
[2022-06-18] MEDS: METOPROLOL ER 25 MG TABLET PO (09:49)
[2022-06-18] MEDS: APIXABAN 5 MG TABLET PO ×2 (09:49→20:29)
[2022-06-18] MEDS: ABIRATERONE 250 MG 1000 EACH PO (09:49)
[2022-06-18] MEDS: predniSONE 5 MG TABLET PO (09:49)
[2022-06-18] MEDS: SODIUM CHLORIDE 0.9% FLUSH 10 ML IV ×2 (09:50→20:52)
[2022-06-18 12:01] VITALS: BP 126/76; PULSE 73; RESP 16; TEMP 35.1; O2SAT 92
[2022-06-18 16:50] VITALS: BP 103/70; PULSE 83; RESP 16; TEMP 36.1; O2SAT 99
[2022-06-18 21:40] VITALS: BP 134/75; PULSE 61; RESP 16; TEMP 36.6; O2SAT 97
[2022-06-19] VITALS (8 sets, daily range): BP systolic 100–120; BP diastolic 69–76; PULSE 69–83; RESP 16–20; TEMP 36.1–36.8; O2SAT 94–99
[2022-06-19] MEDS: PIPERACILLIN/TAZO 3.375 GM in SODIUM CHLORIDE 0.9% 100 ML IV ×3 (04:44→20:30)
[2022-06-19] MEDS: VANCOMYCIN TROUGH 1 REQUEST MISC (07:08)
[2022-06-19] MEDS: VANCOMYCIN 1,000 MG/200 ML PIGGYBACK 200 MG IV (07:08)
[2022-06-19] MEDS: PANTOPRAZOLE DR 20 MG TABLET PO (07:08)
[2022-06-19] MEDS: FUROSEMIDE 40 MG/4 ML VIAL IV (08:10)
[2022-06-19] MEDS: AMLODIPINE 5 MG TABLET PO (08:10)
[2022-06-19] MEDS: METOPROLOL ER 25 MG TABLET PO (08:10)
[2022-06-19] MEDS: APIXABAN 5 MG TABLET PO ×2 (08:10→20:30)
[2022-06-19] MEDS: SODIUM CHLORIDE 0.9% FLUSH 10 ML IV ×2 (08:11→20:31)
[2022-06-19] MEDS: predniSONE 5 MG TABLET PO (09:58)
[2022-06-19] MEDS: ABIRATERONE 250 MG 1000 EACH PO (09:58)
[2022-06-19 12:46] LABS: Add Manual Diff / Slide Review NO; Basophils Absolute Auto 100 /uL (0-100); Basophils Percent Auto 1.1 % (0-2); Eosinophils Absolute Auto 300 /uL (0-450); Eosinophils Percent Auto 4.1 % (2-4); Hematocrit 39.8 % (41-53); Hemoglobin 13.4 g/dL (13.5-17.5); Lymphocytes Absolute Auto 1200 /uL (1100-4500); Lymphocytes Percent Auto 16.4 % (25-40); Mean Corpuscular HGB Conc 33.7 % (30-36); Mean Corpuscular Hemoglobin 29.9 PG (26-34); Mean Corpuscular Volume 88.6 fL (80-100); Monocytes Absolute Auto 600 /uL (0-900); Monocytes Percent Auto 8.6 % (3-14); Neutrophils Absolute Auto 5000 /uL (1500-7000); Neutrophils Percent Auto 69.8 % (50-75); Platelet Count 397 X10^3/uL (150-400); Red Cell Distribution Width 14.3 % (11.6-14.8); White Blood Cell Count 7.1 X10^3/uL (4.5-11.0)
[2022-06-19 13:01] LABS: BUN Creatinine Ratio 18.3 (6-22); Blood Urea Nitrogen 23 mg/dL (9-20); Calcium 9.9 mg/dL (8.4-10.2); Carbon Dioxide 31 mmol/L (22-32); Chloride 96 mmol/L (98-107); Estimated Glomerular Filt Rate 57 mL/min (>60); Glucose 108 mg/dL (80-110); HEMOLYSIS < 15 (0-50); Potassium 3.3 mmol/L (3.4-5.1); Sodium 138 mmol/L (137-145)
[2022-06-19 14:51] LABS: Vancomycin Peak 27.6 ug/mL (20-40)
[2022-06-19 14:53] LABS: Vancomycin Trough 19.6 ug/mL (10-20)
[2022-06-19] MEDS: POTASSIUM CHLORIDE 20 MEQ TAB 40 MEQ PO (14:58)
--- NOTE | 2022-06-19 17:09 | P.PN_ITS ---
Subjective Subjective Date Patient Seen: 06/19/22 Interval history: Redness of LLE continuing to slowly improve. Edema hasn't significantly changed. Exam Vital Signs (past 8 hours): - 06/19/22 12:00 Temperature 98.1 F Pulse Rate 83 Respiratory Rate 17 Blood Pressure 100/70 Pulse Oximetry 99 Oxygen Flow Rate 0 Oxygen Delivery Method CPAP Oxygen Flow Rate 0 Narrative Exam Narrative: General:? Patient is well developed and well nourished, in no distress at this time. HEENT:? Normocephalic, atraumatic, extraocular muscles intact, oral pharynx is clear and mucous membranes are moist. Neck: supple and symmetric, trachea is midline, no cervical adenopathy. Negative for JVD Chest:? Normal AP diameter and contour without kyphoscoliosis, no tachypnea, equal chest rise bilaterally. Lungs:? CTA b/l no wheezing rhonchi or rales. Cardio:?RRR no m/r/g. Abdomen: S NT ND. No CVA tenderness. Musculoskeletal:? Muscle strength and tone are equal within normal limits, no deformity. Motion of his left ankle is improved. Extremities: b/l 2+ pitting edema from knee to forefoot, L > R, with L calf circumferential erythema, tenderness. Mild bullae formation medially. Warmth improved today. Bilateral chronic venous stasis changes. Skin:? Except as noted above. Pale,? Warm to touch,dry and intact without ulcerations or petechiae. Neuro:? Alert and oriented x3,? sensation to touch intact in all extremities, no gross deficits noted of cranial nerves. Psych:? Patient has a well-kept appearance, appropriate affect, mental status attitude thought context and judgment are appropriate for age. Objective Labs Result Diagrams: 06/19/22 11:58 06/19/22 11:58 Labs: Laboratory Results - last 24 hr 06/19/22 06/19/22 06/19/22 06:30 08:55 11:58 WBC 7.1 RBC 4.50 Hgb 13.4 L Hct 39.8 L MCV 88.6 MCH 29.9 MCHC 33.7 RDW 14.3 Plt Count 397 Neut % (Auto) 69.8 Lymph % (Auto) 16.4 L [place] % (Auto) 8.6 Eos % (Auto) 4.1 H Baso % (Auto) 1.1 Neut # (Auto) 5000 Lymph # (Auto) 1200 [place] # (Auto) 600 Eos # (Auto) 300 Baso # (Auto) 100 Sodium Potassium Chloride Carbon Dioxide BUN Creatinine Estimated GFR BUN/Creatinine Ratio Glucose Calcium Vancomycin Peak 27.6 Vancomycin Trough 19.6 06/19/22 11:58 WBC RBC Hgb Hct MCV MCH MCHC RDW Plt Count Neut % (Auto) Lymph % (Auto) [place] % (Auto) Eos % (Auto) Baso % (Auto) Neut # (Auto) Lymph # (Auto) [place] # (Auto) Eos # (Auto) Baso # (Auto) Sodium 138 Potassium 3.3 L Chloride 96 L Carbon Dioxide 31 BUN 23 H Creatinine 1.26 H Estimated GFR 57 L BUN/Creatinine Ratio 18.3 Glucose 108 Calcium 9.9 Vancomycin Peak Vancomycin Trough PFS Medical History Chronic atrial fibrillation Congestive heart failure Hypertension Prostate cancer Social History household members: spouse Smoking Status: Never smoker alcohol intake: current Assessment & Plan Assessment & Plan narrative: Severe left lower extremity cellulitis, failed outpatient antibiotics therapy -admitted for IV antibiotics -IV vancomycin and Zosyn given in the ER, continue same medication, caution with nephrotoxicity, pharmacy to help with the vancomycin dosing. Creatinine rising slightly if continues to rise consider alteration of therapy. -For significant pedal edema given sevewal days of BID 40 IV Lasix. Stopped on 06/19 due to increasing creatinine. Hold off on lisinopril. -Patient immunocompromised status because of the chronic steroid use and also ongoing treatment for cancer -likely component of venous stasis given weeping drainage, recommended frequent leg elevation Atrial fibrillation, rate controlled and on anticoagulation -continue beta-miranda, apixaban Benign essential hypertension continue to monitor Prostate cancer with ongoing therapy continue medications, steroid therapy given the chronic use. DVT and GI prophylaxis reviewed. Patient is full code. Inpatient status. Anticipate discharge home in the 1-2 days with continued IV therapy and dc on po abx. Time Spent With Patient Critical Care time: I spent a total of [] minutes of critical care time on this patient's care today; this time is exclusive of procedural time.
[2022-06-20] MEDS: PIPERACILLIN/TAZO 3.375 GM in SODIUM CHLORIDE 0.9% 100 ML IV (04:25)
[2022-06-20 06:04] VITALS: BP 121/75; PULSE 54; RESP 20; TEMP 35.6; O2SAT 93
[2022-06-20] MEDS: PANTOPRAZOLE DR 20 MG TABLET PO (06:17)
[2022-06-20 08:11] LABS: Add Manual Diff / Slide Review NO; Basophils Absolute Auto 100 /uL (0-100); Eosinophils Absolute Auto 200 /uL (0-450); Eosinophils Percent Auto 4.8 % (2-4); Hematocrit 35.6 % (41-53); Hemoglobin 12.1 g/dL (13.5-17.5); Lymphocytes Absolute Auto 1300 /uL (1100-4500); Lymphocytes Percent Auto 24.1 % (25-40); Mean Corpuscular HGB Conc 34.1 % (30-36); Mean Corpuscular Hemoglobin 30.1 PG (26-34); Mean Corpuscular Volume 88.4 fL (80-100); Monocytes Absolute Auto 500 /uL (0-900); Monocytes Percent Auto 10.3 % (3-14); Neutrophils Absolute Auto 3100 /uL (1500-7000); Neutrophils Percent Auto 59.8 % (50-75); Platelet Count 322 X10^3/uL (150-400); Red Blood Cell Count 4.03 X10^6/uL (4.5-5.9); White Blood Cell Count 5.2 X10^3/uL (4.5-11.0)
--- NOTE | 2022-06-20 08:23 | PM.DS.1 ---
History of Present Illness History of Present Illness Date Patient Seen: 06/20/22 Chief complaint: Poss sepsis Narrative: 82-year-old gentleman with a history of prostate cancer, congestive heart failure, chronic atrial fibrillation anticoagulated on apixaban, hypertension who presents with left lower extremity swelling.? Approximately 3 weeks ago he describes of puncture wound to the left anterior knight with a stick of some sort.? Did not think much of it however it did become increasingly red tender painful and he was seen by his primary care provider on 06/09 given an IM dose of ceftriaxone and has completed a 7 day course of Keflex.? The leg is still has erythema warmth edema and increasing pain after completion of the Keflex.? His primary care doctor recommended that he come to the emergency department for further evaluation.? States that he has been having occasional fevers and chills, no cough, palpitations, chest pain or dyspnea. Patient does have urinary incontinence episodes and symptoms related to urgency but denies any dysuria. Says his urinary symptoms are relatively chronic. Patient getting admitted for failed outpatient antibiotic therapy and worsening of his cellulitis and left lower extremity wound. Patient lives with his and esaon, they left hospital before I saw, he requested not to call them at 2:00 a.m. in the morning, or team members will call them to give an update. Discharge Providers Provider Date of admission: 06/16/22 01:36 Discharge Date: 06/20/22 Primary care physician: Beatriz Park MD Consults: 06/16/22 01:47 Consult to Discharge Planning Routine Comment: Consult to Occupational Therapy Evaluate & Treat Comment: Physician Instructions: Evaluate and treat Consult to Physical Therapy Evaluate & Treat Comment: Physician Instructions: Evaluate and Treat 06/16/22 06:28 Consult to Inpatient Wound Care Nurse Routine Comment: Reason for consultation: Severe Left Lower extremity cellulitis with puncture wound - non healing 06/17/22 14:30 Consult to Home Health Routine Comment: Reason For Exam: Home health upon DC Discharge provider: Sahil Noyola DO Summary Hospital Course Discharge Diagnosis: Severe left lower extremity cellulitis, failed outpatient antibiotics therapy -admitted for IV antibiotics -IV vancomycin and Zosyn given in the ER, continue same medication, caution with nephrotoxicity, pharmacy to help with the vancomycin dosing. Creatinine rising slightly if continues to rise consider alteration of therapy. -For significant pedal edema given sevewal days of BID 40 IV Lasix. Stopped on 06/19 due to increasing creatinine. Hold off on lisinopril.? -Patient immunocompromised status because of the chronic steroid use and also ongoing treatment for cancer -likely component of venous stasis given weeping drainage, recommended frequent leg elevation -received 5 days of IV vanc and Zosyn and discharged on po cefdinir and doxy for 9 more days to complete 2 weeks Atrial fibrillation, rate controlled and on anticoagulation ?-continue beta-miranda, apixaban Benign essential hypertension continue to monitor Prostate cancer with ongoing therapy continue medications, steroid therapy given the chronic use. Hospital Course: Admitted with LLE cellulitis that did not respond to outpatient keflex. Given 5 days of IV abx with improvement in swelling, redness and pain. Also had lots of edema of LLE so given lasix with modest improvement. Possible component of lymphedema vs likely venous stasis also contributing to this. Instructed to elevate legs frequently at home and use compression stockings. Discharged on 9 more days of po cefdinir and doxy for broad coverage. Time Spent with Patient Time spent: Greater than 30 minutes Exam Vital Signs (past 8 hours): - 06/20/22 06:04 Temperature 96.1 F L Pulse Rate 54 L Respiratory Rate 20 Blood Pressure 121/75 Pulse Oximetry 93 Oxygen Delivery Method CPAP Oxygen Flow Rate 0 Narrative Exam Narrative: General:? Patient is well developed and well nourished, in no distress at this time. HEENT:? Normocephalic, atraumatic, extraocular muscles intact, oral pharynx is clear and mucous membranes are moist. Neck: supple and symmetric, trachea is midline, no cervical adenopathy. Negative for JVD Chest:? Normal AP diameter and contour without kyphoscoliosis, no tachypnea, equal chest rise bilaterally. Lungs:? CTA b/l no wheezing rhonchi or rales. Cardio:?RRR no m/r/g. Abdomen: S NT ND. No CVA tenderness. Musculoskeletal:? Muscle strength and tone are equal within normal limits, no deformity. Motion of his left ankle is improved. Extremities: b/l 2+ pitting edema from knee to forefoot, L > R, with L calf circumferential erythema, tenderness. Mild bullae formation medially. Warmth improved today. Bilateral chronic venous stasis changes. Skin:? Except as noted above. Pale,? Warm to touch,dry and intact without ulcerations or petechiae. Neuro:? Alert and oriented x3,? sensation to touch intact in all extremities, no gross deficits noted of cranial nerves. Psych:? Patient has a well-kept appearance, appropriate affect, mental status attitude thought context and judgment are appropriate for age. Objective Labs Result Diagrams: 06/20/22 07:42 06/20/22 07:57 Labs: Laboratory Results - last 24 hr 06/19/22 06/19/22 06/19/22 06:30 08:55 11:58 WBC 7.1 RBC 4.50 Hgb 13.4 L Hct 39.8 L MCV 88.6 MCH 29.9 MCHC 33.7 RDW 14.3 Plt Count 397 Neut % (Auto) 69.8 Lymph % (Auto) 16.4 L [place] % (Auto) 8.6 Eos % (Auto) 4.1 H Baso % (Auto) 1.1 Neut # (Auto) 5000 Lymph # (Auto) 1200 [place] # (Auto) 600 Eos # (Auto) 300 Baso # (Auto) 100 Sodium Potassium Chloride Carbon Dioxide BUN Creatinine Estimated GFR BUN/Creatinine Ratio Glucose Calcium Vancomycin Peak 27.6 Vancomycin Trough 19.6 06/19/22 06/20/22 11:58 07:42 WBC 5.2 RBC 4.03 L Hgb 12.1 L Hct 35.6 L MCV 88.4 MCH 30.1 MCHC 34.1 RDW 14.0 Plt Count 322 Neut % (Auto) 59.8 Lymph % (Auto) 24.1 L [place] % (Auto) 10.3 Eos % (Auto) 4.8 H Baso % (Auto) 1.0 Neut # (Auto) 3100 Lymph # (Auto) 1300 [place] # (Auto) 500 Eos # (Auto) 200 Baso # (Auto) 100 Sodium 138 Potassium 3.3 L Chloride 96 L Carbon Dioxide 31 BUN 23 H Creatinine 1.26 H Estimated GFR 57 L BUN/Creatinine Ratio 18.3 Glucose 108 Calcium 9.9 Vancomycin Peak Vancomycin Trough [facility] Medical History Chronic atrial fibrillation Congestive heart failure Hypertension Prostate cancer Social History household members: spouse Smoking Status: Never smoker alcohol intake: current Discharge Plan Discharge Plan Patient Disposition: Home Provider Discharge Comment: You were admitted with a cellulitis of your leg which need IV antibiotics. This improved slowly over time and you will now need to complete 9 more days of oral antibiotics to make sure it's completely healed. I'm sending 2 of them to cover you for any potential bacteria that could be causing this. Discharge orders & Medications Prescriptions: New cefdinir 300 mg capsule 300 mg PO BID 9 Days Qty: 18 0RF Rx Instructions: start evening of 126 doxycycline monohydrate 100 mg tablet 100 mg PO BID 9 Days Qty: 18 0RF Rx Instructions: start evening of 126 Continued lisinopril 20 mg tablet 20 mg PO Q12H prednisone 5 mg tablet 5 mg PO DAILY torsemide 10 mg tablet 10 mg PO DAILY amlodipine 5 mg tablet 5 mg PO DAILY omeprazole 20 mg capsule,delayed release(DR/EC) 20 mg PO DAILY metoprolol succinate 25 mg tablet extended release 24 hr 25 mg PO DAILY Eliquis 5 mg tablet 5 mg PO BID cholecalciferol (vitamin D3) 1,000 mg PO DAILY abiraterone 250 mg tablet 1,000 mg PO DAILY Follow up/Referrals: Beatriz Park MD [Primary Care Provider] - Visit Report/Discharge Packet Instructions: DI for Cellulitis -- Adult Discharge Data Primary Care Provider: Beatriz Park
[2022-06-20 08:30] LABS: BUN Creatinine Ratio 23.4 (6-22); Blood Urea Nitrogen 22 mg/dL (9-20); Calcium 9.3 mg/dL (8.4-10.2); Carbon Dioxide 28 mmol/L (22-32); Chloride 101 mmol/L (98-107); Estimated Glomerular Filt Rate > 60 mL/min (>60); Glucose 100 mg/dL (80-110); HEMOLYSIS < 15 (0-50); Potassium 3.6 mmol/L (3.4-5.1); Sodium 135 mmol/L (137-145)
[2022-06-20 08:49] VITALS: BP 127/73; PULSE 71; RESP 17; TEMP 36.3; O2SAT 93
[2022-06-20] MEDS: APIXABAN 5 MG TABLET PO (09:52)
[2022-06-20] MEDS: METOPROLOL ER 25 MG TABLET PO (09:52)
[2022-06-20] MEDS: predniSONE 5 MG TABLET PO (09:52)
[2022-06-20] MEDS: ABIRATERONE 250 MG 1000 EACH PO (09:52)
[2022-06-20] MEDS: AMLODIPINE 5 MG TABLET PO (09:52)
[2022-06-20] MEDS: SODIUM CHLORIDE 0.9% FLUSH 10 ML IV (09:52)
[2022-06-20] MEDS: VANCOMYCIN 1,750 MG in SODIUM CHLORIDE 0.9% 500 ML 250 MG IV (11:40)
[2022-06-20 12:11] VITALS: BP 133/85; PULSE 70; RESP 17; TEMP 36.1; O2SAT 93
--- NOTE | 2022-06-20 14:09 | PC.NURSE ---
Addendum entered by Deion Agosto R.N. 06/20/22 14:29: Patient escorted out via wheelchair with all his belongings. Original Note: Patient's left lower leg cleansed with saline and patted dry with gauze. Area believed to be a blister is actually area of dried exudate with pink skin underneath. Area still has minimal yellow weeping. Erythemia improved. Allevyn gentle border dressing applied to open weeping area, then leg wrapped in kerlex gauze and secured with paper tape. Patient states he and his are able to complete dressing changes and clean the area as needed. Patient instructed that if allevyn dressing is dry and intact can stay on for 2 days until when evaluated by home health nurse. Patient states understanding and has no further questions or concerns. Discharge instructions reviewed wtih patient. IV's removed intact. Patient to schedule follow up with his PCP as needed, home health services arranged by case management.
--- NOTE | 2022-06-20 15:08 | CM.DPNOTE ---
DC Note DC home today w/spouse, [facility] and close outpatient f/u Updated Corinne at [facility], she reports she has what she needs for this referral and will plan to contact patient this afternoon to schedule first visit- which is expected to be w/in 24-48 hours. HH RN requested for wound care Reviewed w/patient who is inn good spirits, agreeable to plan JW
[2022-06-20 20:21] LABS: Magnesium 1.9 mg/dL (1.6-2.3)
== END 2022-06-20 14:29 | disposition home health service (06) | DRG 603 ==
LOC: ED 06-16 01:17 → AC 06-16 01:37
PROVIDERS: Student in an Organized Health Care Education/Training Program; Admitting Provider Family Medicine; Emergency Provider Emergency Medicine; PCP Internal Medicine; Referring Provider Emergency Medicine; Visit Provider Family Medicine
DX: L03.116 Cellulitis of left lower limb (principal); I48.20 Chronic atrial fibrillation, unspecified; D84.821 Immunodeficiency due to drugs; C61 Malignant neoplasm of prostate; I10 Essential (primary) hypertension; T38.0X5A Adverse effect of glucocorticoids and synthetic analogues, initial encounter; Z79.52 Long term (current) use of systemic steroids; Z20.822 Contact with and (suspected) exposure to COVID-19; Z79.01 Long term (current) use of anticoagulants
CPT/HCPCS: 0241U; 36415; 71046; 73701; 80048; 80053; 80202; 81003; 81015; 83605; 83690; 83735; 83880; 84145; 85025; 85610; 85730; 87040; 93971; 96365; 96366; 96367; 99284; J1170; J1940; J2543; Q9967

== ENCOUNTER → 2024-11-19 12:02 | Outpatient (CLI) | payer MEDICARE, SELFPAY ==
[2022-06-16 14:08] VITALS: BMI 36.6
--- NOTE | 2024-11-19 12:04 | DI.ECHO.S_ITS ---
[place] +---------+ [facility] : : [address] : : [place] : : [id number] : : Phone: [phone] Echocardiogram Report + + :Name: THOMPSON ELIZABETH Study Date: 11/19/2024 Height: 74 in : :Hospital ReadingLocation: Weight: 260 lb : : Gender: Male BSA: 2.4 m2 : :: 1940 Age: 84 yrs BP: 144/90 mmHg: :Reason For Study: ASCENDING AORTA DILATION : :Ordering Physician: HEVER, : :JUNIE HANSON Performed By: Luciana Steinberg : :Referring: JUNIE KATHLEEN MD : + + Interpretation Summary There is likely severe mitral regurgitation leading to severe pulmonary hypertension and RV dilation with dysfunction. Moderate aortic regurgitation. Severe tricuspid regurgitation. Severe biatrial enlargement. Elevated RA pressures. Other findings as below. No previous echo images are available for comparison. Suspect patient's mitral regurgitation is primary pathology with other dysfunction present due to volume/pressure overload. Procedure: A two-dimensional transthoracic echocardiogram with color flow and Doppler was performed. The study quality was technically adequate. There is no prior echocardiogram noted for this patient. The patient was in atrial fibrillation with heart rates between 52-70 bpm during the exam. Left Ventricle: The left ventricle is normal in size and wall thickness. The ejection fraction is estimated to be 50-55%. Diastolic function could not be accurately assessed due to atrial fibrillation. Right Ventricle: The right ventricle is mildly dilated. Right ventricular systolic function is moderately reduced. Atria: The left atrium is severely dilated. The right atrium is severely dilated. There is no Doppler evidence for an interatrial shunt. Mitral Valve: The mitral valve leaflets appear mildly thickened, but open well. Annular dilation is present. There is severe mitral regurgitation. Aortic Valve: The aortic valve is trileaflet. The aortic valve opens well. There is no aortic valve stenosis. There is moderate aortic regurgitation. Tricuspid Valve: The tricuspid annulus is dilated. There is severe tricuspid regurgitation. The right ventricular systolic pressure is estimated to be at least 54 mmHg based on an estimated right atrial pressure of 15 mm Hg. Pulmonic Valve: The pulmonic valve leaflets are thin and pliable; valve motion is normal. There is mild pulmonic regurgitation. Great Vessels: The aortic root is normal size. The ascending aorta is mildly enlarged. The IVC is dilated (diameter is greater than 2.1 cm) and it collapses less than 50% with a sniff. This suggests a high right atrial pressure of 15 mm Hg. Pericardium/ Pleura There is no pericardial effusion. There is no pleural effusion. MMode/2D Measurements & Calculations LVIDd: 5.1 cm LVOT diam: 2.3 cm LVIDs: 3.3 cm Ao root diam: 3.9 cm FS: 34.8 % asc Aorta Diam: 4.0 cm EPSS: 0.58 cm Ao Arch Diam (Prox Trans): 3.8 cm IVSd: 0.80 cm LVPWd: 0.90 cm LV alanis. diameter/BSA (cm/m^2): 2.1 LV sys. diameter/BSA (cm/m^2): 1.4 LA A2 area: 56.6 cm2 RA long axis: 7.8 cm LA A4 area: 45.9 cm2 RA area: 39.6 cm2 LA length (vol): 8.5 cm RA vol: 171.7 ml LA vol: 259.0 ml RA : 70.7 ml/m2 LA vol index: 106.6 ml/m2 IVC diam: 2.4 cm RVD1 (basal): 4.5 cm RVD2 (mid): 3.9 cm TAPSE: 0.98 cm Doppler Measurements & Calculations Ao V2 max: 97.0 cm/sec LVOT Max Charlie: 62.1 cm/sec Ao V2 mean: 68.6 cm/sec LV V1 max P.5 mmHg Ao max P.8 mmHg LV V1 VTI: 12.9 cm Ao mean P.1 mmHg CRISTINE(I,D): 2.8 cm2 Ao V2 VTI: 20.1 cm CRISTINE(V,D): 2.8 cm2 sev ratio: 0.64 CRISTINE indexed to BSA (cm^2/m^2): 1.1 MV E max charlie: 97.7 cm/sec TR max charlie: 313.9 cm/sec Med Peak E' Charlie: 7.6 cm/sec TR max P.4 mmHg E/E' med: 12.8 PA V2 max: 54.8 cm/sec Lat Peak E' Charlie: 14.0 cm/sec PA V2 mean: 42.0 cm/sec E/E' lat: 7.0 PA mean P.75 mmHg E/e' average: 9.9 PA pr(Accel): 56.5 mmHg MV dec time: 0.19 sec SV(LVOT): 55.7 ml Reading Physician:05:50 PM
== END ==
LOC: ECHO 12:04
PROVIDERS: PCP Internal Medicine; Referring Provider Internal Medicine Cardiovascular Disease; Visit Provider Internal Medicine Cardiovascular Disease
DX: I77.810 Thoracic aortic ectasia (principal); I08.3 Combined rheumatic disorders of mitral, aortic and tricuspid valves; I77.89 Other specified disorders of arteries and arterioles
CPT/HCPCS: 93306